=== PATIENT | female | born 1935 | race Two or more races ===

== ENCOUNTER 2018-05-15 10:00 | Outpatient (CLI) | payer OTHER | END 2018-05-15 10:07 | disposition home or self-care (01) | LOC: SONOGRAMA 10:00 → MAMO-SONO 10:15 | DX: R10.84 Generalized abdominal pain (principal) ==

== ENCOUNTER 2018-05-24 09:06 | Outpatient (CLI) | payer OTHER | END 2018-05-24 13:51 | disposition home or self-care (01) | LOC: TOM 09:06 | DX: K86.2 Cyst of pancreas (principal); R10.84 Generalized abdominal pain; R93.5 Abnormal findings on diagnostic imaging of other abdominal regions, including retroperitoneum ==

== ENCOUNTER 2020-12-18 12:41 | Outpatient (CLI) | payer OTHER | END 2020-12-18 12:44 | disposition home or self-care (01) | LOC: RAD 12:41 | PROVIDERS: ATTEND Internal Medicine Cardiovascular Disease | DX: R07.89 Other chest pain (principal) ==

== ENCOUNTER 2021-11-20 12:30 | Outpatient (CLI) | payer OTHER | END 2021-11-22 14:59 | disposition home or self-care (01) | LOC: TOM 12:30 | PROVIDERS: ATTEND Internal Medicine Cardiovascular Disease | DX: I63.50 Cerebral infarction due to unspecified occlusion or stenosis of unspecified cerebral artery (principal); R41.2 Retrograde amnesia; G30.9 Alzheimer's disease, unspecified ==

== ENCOUNTER 2021-12-26 09:58 | Outpatient (CLI) | payer OTHER | END 2021-12-26 10:02 | disposition home or self-care (01) | LOC: RAD 09:58 | PROVIDERS: ATTEND Internal Medicine Pulmonary Disease | DX: J43.2 Centrilobular emphysema (principal); Z87.891 Personal history of nicotine dependence; R06.02 Shortness of breath ==